=== PATIENT | female | born 1990 | race American Indian/Alaskan Native ===

== ENCOUNTER 2017-06-13 16:13 | Emergency (ER) | payer OTHER ==
[2017-06-13 16:19] VITALS: BP 132/80
[2017-06-13] MEDS ORDERED: predniSONE 20 MG Tab PO ONE (16:23)
[2017-06-13] MEDS ORDERED: Lidocaine 2% Viscous Solution 15 ML Cup PO ONE (16:23)
[2017-06-13] MEDS ORDERED: Amoxicillin/Clavulanate K 875-125 MG Tab PO ONE (16:24)
--- NOTE | 2017-06-13 16:35 | EDM.PDOC ---
Scribed by Roberta Abraham 06/13/17 0193 for Gavin Rogers MD ED HPI GENERAL MEDICAL PROBLEM - General Chief Complaint: ENT Problem Stated Complaint: EAR INFECTION Time Seen by Provider: 06/13/17 16:20 Source of Information: Reports: Patient, RN, RN Notes Reviewed History Limitations: Reports: No Limitations - History of Present Illness INITIAL COMMENTS - FREE TEXT/NARRATIVE: Patient complains of left ear pain x5 days, worse today. Reports hearing is muffled. Admits to sinus pressure and mild congestion. Denies fever or chills. Location: Reports: Head Quality: Reports: Ache Severity: Severe Improves with: Reports: None Worsens with: Reports: None Associated Symptoms: Reports: No Other Symptoms Left Ear Pain Score (Numeric/FACES): 6 - Related Data Allergies Allergy/AdvReac Type Severity Reaction Status Date / Time No Known Allergies Allergy Verified 06/13/17 16:17 Home Meds: Home Meds . [No Known Home Meds] 06/13/17 [History] ED ROS ENT - Review of Systems Review Of Systems: ROS reveals no pertinent complaints other than HPI. ED EXAM, ENT - Physical Exam Exam: See Below Exam Limited By: No Limitations General Appearance: Alert, WD/WN, No Apparent Distress Eye Exam: Bilateral Eye: Normal Inspection Ears: Other (Left TM erythematous, retracted and dull. Right TM normal. ) Nose: Other (injected and inflamed inferior turbinates with purulent drainage. ) Mouth/Throat: Normal Inspection, Normal Gums, Normal Lips, Normal Oropharynx, Normal Teeth Head: Atraumatic, Normocephalic Neck: Normal Inspection, Supple, Non-Tender, Full Range of Motion Respiratory/Chest: No Respiratory Distress, Lungs Clear, Normal Breath Sounds, No Accessory Muscle Use, Chest Non-Tender Cardiovascular: Normal Peripheral Pulses, Regular Rate, Rhythm, No Edema, No Gallop, No JVD, No Murmur, No Rub Neurological: Alert, Oriented, CN II-XII Intact, Normal Cognition, Normal Gait, Normal Reflexes, No Motor/Sensory Deficits Psychiatric: Normal Affect, Normal Mood Skin: Warm, Dry, Intact, Normal Color, No Rash Lymphatic: No Adenopathy Course - Vital Signs Last Recorded V/S: Last Vital Signs Temp 36.4 C 06/13/17 16:17 Pulse 93 06/13/17 16:17 Resp 16 06/13/17 16:17 BP 132/80 06/13/17 16:17 Pulse Ox 100 06/13/17 16:17 - Orders/Labs/Meds Meds: Medications Discontinued Medications Generic Name Dose Route Start Last Admin Trade Name Chris PRN Reason Stop Dose Admin Amoxicillin/Clavulanate Potassium 1 tab 06/13/17 16:24 06/13/17 16:34 Augmentin 875 Mg/125 Mg PO 06/13/17 16:25 1 tab ONETIME ONE Administration Lidocaine HCl 15 ml 06/13/17 16:23 06/13/17 16:34 Xylocaine 2% Viscous PO 06/13/17 16:24 15 ml ONETIME ONE Administration Prednisone 60 mg 06/13/17 16:23 06/13/17 16:34 Prednisone PO 06/13/17 16:24 60 mg ONETIME ONE Administration Departure - Departure Time of Disposition: 16:27 Disposition: Home, Self-Care 01 Condition: Good Clinical Impression: Barotitis media, Sinusitis - Discharge Information Instructions: Barotitis Media, Sinusitis, Adult, [id number] Forms: ED Department Discharge Additional Instructions: RX: Augmentin 875mg. RX: Prednisone 20mg. Use over the counter decongestant until symptoms improve. Frequently pinch nose and gently blow nose until ear pops. Follow up in clinic if not improving in 3 to 5 days. I have read and agree with the documentation that has been completed regarding this visit. By signing this record, I attest that the documentation was completed in my physical presence and is an accurate record of the encounter.
== END 2017-06-13 16:40 | disposition home or self-care (01) ==
LOC: DL.ED 16:13
DX: T70.0XXA Otitic barotrauma, initial encounter (principal); J32.9 Chronic sinusitis, unspecified
CPT/HCPCS: 99282; A9270

== ENCOUNTER 2017-10-10 10:18 | Emergency (ER) | payer OTHER ==
[2017-10-10 10:30] VITALS: BP 123/86
--- NOTE | 2017-10-10 11:08 | EDM.PDOC ---
Scribed by Roberta Abraham 10/10/17 1108 for Gavin Rogers MD ED HPI GENERAL MEDICAL PROBLEM - General Chief Complaint: ENT Problem Stated Complaint: LEFT EAR PAIN GOING DOWN JAW Time Seen by Provider: 10/10/17 10:48 Source of Information: Reports: Patient, RN, RN Notes Reviewed History Limitations: Reports: No Limitations - History of Present Illness INITIAL COMMENTS - FREE TEXT/NARRATIVE: Patient complains of left ear pain x 4 days. The pain radiates to the left neck and jaw. Denies fever, chills, sore throat or headache. Patient had a similar episode last summer. Admits to sinus congestion with pressure and "sinus headache". Location: Reports: Head Quality: Reports: Ache Severity: Severe Improves with: Reports: None Worsens with: Reports: None Associated Symptoms: Reports: No Other Symptoms Left Ear Pain Score (Numeric/FACES): 8 - Related Data Allergies Allergy/AdvReac Type Severity Reaction Status Date / Time No Known Allergies Allergy Verified 10/10/17 10:33 Home Meds: Home Meds guaiFEN/Phenyleph/Acetaminophn [Tylenol Sinus Severe Caplet] 1 dose PO ASDIRECTED PRN 10/10/17 [History] Past Medical History - Past Health History Medical/Surgical History: Denies Medical/Surgical History HEENT History: Reports: Impaired Vision Other HEENT History: wears glasses Cardiovascular History: Reports: None Respiratory History: Reports: None Gastrointestinal History: Reports: None Genitourinary History: Reports: None SHAPE BRICK MOLDER History: Reports: None Musculoskeletal History: Reports: None Neurological History: Reports: None Psychiatric History: Reports: None Endocrine/Metabolic History: Reports: None Hematologic History: Reports: None Immunologic History: Reports: None Oncologic (Cancer) History: Reports: None Dermatologic History: Reports: None - Infectious Disease History Infectious Disease History: Reports: Chicken Pox - Past Surgical History Head Surgeries/Procedures: Reports: None Social & Family History - Family History Family Medical History: Noncontributory - Tobacco Use Smoking Status *Q: Never Smoker Second Hand Smoke Exposure: No - Caffeine Use Caffeine Use: Reports: Coffee, Tea - Recreational Drug Use Recreational Drug Use: No ED ROS ENT - Review of Systems Review Of Systems: ROS reveals no pertinent complaints other than HPI. ED EXAM, ENT - Physical Exam Exam: See Below Exam Limited By: No Limitations General Appearance: Alert, WD/WN, No Apparent Distress Eye Exam: Bilateral Eye: Normal Inspection Ears: Other (Right ear and TM normal. Left external ear and canal. Left TM retracted with clear air fluid levels. ) Nose: Other (moderate nasal congestion with injected turbinates.) Head: Atraumatic, Normocephalic, Sinus Tenderness (frontal. ) Neck: Normal Inspection, Supple, Non-Tender, Full Range of Motion Respiratory/Chest: No Respiratory Distress, Lungs Clear, Normal Breath Sounds, No Accessory Muscle Use, Chest Non-Tender Cardiovascular: Normal Peripheral Pulses, Regular Rate, Rhythm, No Edema, No Gallop, No JVD, No Murmur, No Rub Neurological: Alert, Oriented, CN II-XII Intact, Normal Cognition, Normal Gait, Normal Reflexes, No Motor/Sensory Deficits Psychiatric: Normal Affect, Normal Mood Skin: Warm, Dry, Intact, Normal Color, No Rash Course - Vital Signs Last Recorded V/S: Last Vital Signs Temp 36.7 C 10/10/17 10:30 Pulse 70 10/10/17 10:30 Resp 16 10/10/17 10:30 BP 123/86 10/10/17 10:30 Pulse Ox 100 10/10/17 10:30 Departure - Departure Time of Disposition: 10:56 Disposition: Home, Self-Care 01 Condition: Good Clinical Impression: Barotitis media Qualifiers: Encounter type: initial encounter Qualified Code(s): T70.0XXA - Otitic barotrauma, initial encounter Acute sinusitis Qualifiers: Sinusitis location: frontal Recurrence: non-recurrent Qualified Code(s): J01.10 - Acute frontal sinusitis, unspecified - Discharge Information Instructions: Barotitis Media, Sinusitis, Adult, [place] Forms: ED Department Discharge Additional Instructions: RX: Augmentin 875mg. RX: Prednisone 20mg. RX: Viscous Lidocaine 2%. RX: Claritin D 24 hour Frequently pinch nose and gently blow until ear pops. Follow up in clinic if not improving in 5-7 days. I have read and agree with the documentation that has been completed regarding this visit. By signing this record, I attest that the documentation was completed in my physical presence and is an accurate record of the encounter.
== END 2017-10-10 11:12 | disposition home or self-care (01) ==
LOC: DL.ED 10:18
DX: T70.0XXA Otitic barotrauma, initial encounter (principal); J01.10 Acute frontal sinusitis, unspecified
CPT/HCPCS: 99283